=== PATIENT | male | born 1990 | race Caucasian/White ===

== ENCOUNTER 2016-11-07 12:30 | Emergency (ER) | payer OTHER, MEDICAID ==
[~2016-11-07] VITALS: Ht 170.2 cm; Wt 66.0 kg
[2016-11-07 13:54] VITALS: BP 124/81
== END 2016-11-07 13:54 | disposition home or self-care (01) ==
LOC: ED 12:30
DX: B37.0 Candidal stomatitis (principal); F15.90 Other stimulant use, unspecified, uncomplicated; F32.9 Major depressive disorder, single episode, unspecified; F20.9 Schizophrenia, unspecified

== ENCOUNTER 2020-02-09 10:01 | Emergency (ER) | payer OTHER, MEDICAID ==
[~2020-02-09] VITALS: Ht 170.2 cm; Wt 76.7 kg
[2020-02-09 10:06] VITALS: Ht 170.2 cm; Wt 76.7 kg
[2020-02-09 11:17] VITALS: BP 131/79
== END 2020-02-09 11:17 | disposition home or self-care (01) ==
LOC: ED 10:01
DX: S01.511A Laceration without foreign body of lip, initial encounter (principal); Y04.8XXA Assault by other bodily force, initial encounter; Y93.89 Activity, other specified; Y92.89 Other specified places as the place of occurrence of the external cause; Y99.8 Other external cause status
CPT/HCPCS: J2001

== ENCOUNTER 2020-02-19 08:19 | Emergency (ER) | payer OTHER, MEDICAID ==
[~2020-02-19] VITALS: Ht 170.2 cm; Wt 68.5 kg
[2020-02-19 08:24] VITALS: Ht 170.2 cm; Wt 68.5 kg
[2020-02-19 09:56] VITALS: BP 121/68
== END 2020-02-19 09:56 | disposition home or self-care (01) ==
LOC: ED 08:19
DX: S01.511D Laceration without foreign body of lip, subsequent encounter (principal); K59.00 Constipation, unspecified; Z98.890 Other specified postprocedural states; X58.XXXD Exposure to other specified factors, subsequent encounter
CPT/HCPCS: Q0092

== ENCOUNTER 2020-03-12 11:04 | Emergency (ER) | payer OTHER, MEDICAID ==
[~2020-03-12] VITALS: Ht 170.2 cm; Wt 70.8 kg
[2020-03-12 11:37] VITALS: Ht 170.2 cm; Wt 70.8 kg
[2020-03-12 13:26] VITALS: BP 127/76
== END 2020-03-12 13:26 | disposition home or self-care (01) ==
LOC: ED 11:04
DX: Z13.9 Encounter for screening, unspecified (principal)